=== PATIENT | male | born 1960 ===

== ENCOUNTER 2024-01-04 10:02 | Outpatient (CLI) | payer OTHER ==
--- NOTE | 2024-01-05 06:38 | XRAY Report ---
PROCEDURE: Knee 1-2V RT INDICATIONS: KNEE PAIN TECHNIQUE: 2 views of the knee was obtained. COMPARISON: None FINDINGS: Bones: No fractures or dislocations. No suspicious bony lesions. Moderate medial compartmental join t space narrowing and marginal osteophyte Soft tissues: Small knee joint effusion. No suspicious soft tissue calcifications or masses. Athero sclerotic vascular calcification in the popliteal vasculature IMPRESSION: Moderate medial compartment osteoarthritis and small joint effusion Reviewed by: Foreign Llamas MD on 01/05/2024 5:36 AM [facility] Approved by: Foreign Llamas MD on 01/05/2024 5:36 AM [place] Station ID: [id number]
--- NOTE | 2024-01-05 06:40 | XRAY Report ---
PROCEDURE: Lumbar Spine 2-3V INDICATIONS: LUMBAR PAIN TECHNIQUE: 2 view(s) of the lumbar spine were acquired. COMPARISON: None. FINDINGS: Bones: Mild L1 and L2 anterior wedge-shaped compression fractures with less than 10% height loss. Hy pertrophic facet joints are associated with grade 1 retrolisthesis at L2-3 and L3-4. Disc space narro wing and anterior osteophytes at the thoracolumbar junction Normal bone mineralization present. Soft tissues: Overlying bowel gas pattern is normal. No suspicious soft tissue calcifications. IMPRESSION: Mild L1 and L2 compression fractures, uncertain age, probably old Degenerative disc disease and arthropathy associated with grade 1 retrolisthesis L2-3 and L3-4 Reviewed by: Foreign Llamas MD on 01/05/2024 5:39 AM [facility] Approved by: Foreign Llamas MD on 01/05/2024 5:39 AM [place] Station ID: [id number]
== END 2024-01-04 10:03 | disposition home or self-care (01) ==
LOC: DI 10:02
PROVIDERS: ATTEND Internal Medicine Cardiovascular Disease
DX: M17.11 Unilateral primary osteoarthritis, right knee (principal); M25.461 Effusion, right knee; M47.816 Spondylosis without myelopathy or radiculopathy, lumbar region; M51.36 Other intervertebral disc degeneration, lumbar region; M48.56XA Collapsed vertebra, not elsewhere classified, lumbar region, initial encounter for fracture; M43.16 Spondylolisthesis, lumbar region